=== PATIENT | male | born 1960 | race Caucasian/White ===

== ENCOUNTER → 2016-12-23 | Outpatient (CLI) | payer OTHER ==
--- NOTE | 2016-12-23 09:51 | US ---
RIGHT UPPER QUADRANT ULTRASOUND HISTORY: RUQ pain Comparison: None Technique: Multiple alexander scale and color flow Doppler images of the right upper quadrant were obtain ed. Findings: Overall study is limited by overlying bowel gas. The liver is normal in echotexture and size. No fo justine mass. No intrahepatic bile duct dilatation. No gallstones. No pericholecystic fluid or gallbladd er wall thickening. The technologist did not report a positive sonographic Rios's sign. The common bile duct measures 6 mm. The right kidney measures 9.6 cm. No hydronephrosis or renal masses. The pancreas is obscured by o verlying bowel gas. IMPRESSION: 1. Negative right upper quadrant ultrasound. Reported By:
== END ==
LOC: RAD 08:52
PROVIDERS: ATTEND Obstetrics & Gynecology Obstetrics
DX: R10.84 Generalized abdominal pain (principal)
CPT/HCPCS: 76705